=== PATIENT | male | born 1985 | race Caucasian/White ===

== ENCOUNTER 2021-09-07 10:42 | Outpatient (CLI) | payer BC, SELFPAY ==
[2021-09-07 17:42] LABS: Albumin* 4.9 g/dL (3.3-5.0)
[2021-09-07 17:45] LABS: Alkaline Phosphatase* 69 U/L (40-150); Aspartate Amino Transferase* 29 U/L (12-35); Bilirubin Direct* 0.5 mg/dL (0.0-0.5); Bilirubin Total* 1.2 mg/dL (0.1-1.5); Total Protein* 7.7 g/dL (6.0-8.3)
[2021-09-07 17:46] LABS: Alanine Aminotransferase* 35 U/L (4-50); Lipase* 78 U/L (23-300)
[2021-09-07 17:51] LABS: C Reactive Protein* < 0.5 mg/dL (0.5-1.0)
== END 2021-09-07 10:43 | disposition home or self-care (01) ==
PROVIDERS: PCP Family Medicine; Visit Provider Family Medicine
DX: R10.11 Right upper quadrant pain (principal)
CPT/HCPCS: 80076; 83690; 86140

== ENCOUNTER 2021-09-12 07:01 | Outpatient (CLI) | payer BC, SELFPAY ==
--- NOTE | 2021-09-12 07:15 | CRLHL7_ITS ---
For Patients: As a result of the Century Cures Act, medical imaging exams and procedure reports are released immediately into your electronic medical record. You may view this report before your referring provider. If you have questions, please contact your health care provider. INDICATION: Unspecified abdominal pain COMPARISON: CT 09/12/21 TECHNIQUE: Real time olvera scale imaging and color Doppler analysis was performed of the right upper quadrant. FINDINGS: The patient`s liver is enlarged and has diffusely coarsened/increased echogenicity. There is a normal appearance of the hepatic IVC and proximal abdominal aorta. There is no evidence of ascites. The gallbladder is of normal size and there is no evidence of intraluminal stones or sludge. The gallbladder wall measures 2 mm in thickness. The common bile duct is of normal size and measures 5 mm in diameter at the level of the ivy hepatis. The pancreas appears normal. There is no evidence of a stone or hydronephrosis within the right kidney. The right kidney measures 13.3 cm in length. IMPRESSION: Hepatomegaly and diffuse hepatic steatosis. Normal gallbladder. Dictated by Jamir Coronado MD @ 09/12/2021 9:23:55 AM (Electronically Signed)
== END 2021-09-12 07:02 | disposition home or self-care (01) ==
LOC: US 07:02
PROVIDERS: PCP Family Medicine; Visit Provider Family Medicine
DX: R10.9 Unspecified abdominal pain (principal); K76.0 Fatty (change of) liver, not elsewhere classified
CPT/HCPCS: 76705

== ENCOUNTER 2022-04-20 01:23 | Emergency (ER) | payer SELFPAY ==
[2022-04-20 01:31] VITALS: BP 146/88; PULSE 80; RESP 18; TEMP 36.4; O2SAT 99; BMI 40.0
--- NOTE | 2022-04-20 01:46 | ED.GENADULT ---
HPI - General Adult General Chief complaint: Unspecified Complaint, Adult Stated complaint: Shakey, vision changes Time Seen by Provider: 04/20/22 01:37 History of Present Illness HPI narrative: Pt is a 36 year old gentleman with a history of panic attacks who awoke from sleep after a particularly bad dream and felt unwell. He felt a pounding in his head. Head felt extremely anxious and felt like he was having difficulty focusing with his eyes. No focal neuroligical defects. Pt drove with his to the emergency room and although his symptoms were improved he still felt unwell. Pt describes no chest pain, shortness of breath, focal weakness, nausea or vomiting. No further pain. Pt did take a Xanax before coming in. No history of similar sleep disturbances. He has been in his usual reasonable state of health. Related Data Previous Rx's Medication Instructions Recorded escitalopram oxalate 20 mg tablet 20 mg PO QDAY #90 tabs 10/15/21 fenofibrate micronized 67 mg 67 mg PO QDAY #90 caps 10/15/21 capsule simvastatin 40 mg tablet See Rx Instructions .Route 02/07/22 .COMPLEX #90 tabs allopurinol 300 mg tablet See Rx Instructions .Route 04/18/22 .COMPLEX #90 tabs irbesartan 150 mg tablet See Rx Instructions .Route 04/18/22 .COMPLEX #90 tabs metoprolol succinate 50 mg See Rx Instructions .Route 04/18/22 tablet,extended release 24 hr .COMPLEX #90 tabs verapamil 180 mg tablet,extended See Rx Instructions .Route 04/18/22 release .COMPLEX #180 tabs Allergies Allergy/AdvReac Type Severity Reaction Status Date / Time No Known Drug Allergies Allergy Verified 09/07/21 10:16 Review of Systems Status of ROS: Reports: 10 or more systems reviewed and unremarkable except as noted in History and below [facility] Medical History Anxiety (07/13/12) Back pain Gastroesophageal reflux (12/14/12) Gout Hyperlipidemia Hypertension (07/13/12) Surgical History Status post right knee surgery Social History Smoking Status: Never smoker Exam Narrative: Exam Narrative: EXAM GENERAL: Patient appears comfortable and well. EYES: No scleral icterus. ENT: Tympanic membranes and oropharynx normal. THYROID: no thyroid nodules or thyromegaly. LYMPH: No supraclavicular or cervical lymphadenopathy. SKIN: Visible skin seen during exam normal or with benign process only. EXT: No dependent lower extremity pedal edema. HEART: Regular rate and rhythm with no murmurs, rubs, or gallops. LUNGS: Clear to auscultation bilaterally with no crackles or wheezes. ABD: Soft, non tender, non distended. PSYCH: Good eye contact, speech is not pressured. Neurologic cranial nerves 2-12 grossly intact no focal defects. Const: Vital Signs, click to edit/add: Vital Signs - 24 hr 04/20/22 01:31 Temperature 97.6 F Pulse Rate [Pulse Oximeter] 80 Respiratory Rate 18 Blood Pressure [Ri ght Upper Arm] 146/88 H Pulse Oximetry 99 Oxygen Delivery Me thod Room Air Course Course Hospital Course: Pt seen and examined. Vital Signs Vital signs: Initial Vital Signs Temperature 97.6 F 04/20/22 01:31 Temperature Source Temporal Artery Scan 04/20/22 01:31 Pulse Rate 80 04/20/22 01:31 Pulse Rhythm 04/20/22 01:31 Pulse Strength 3+ Normal 04/20/22 01:31 Respiratory Rate 18 04/20/22 01:31 Blood Pressure 146/88 H 04/20/22 01:31 Blood Pressure Mean 107 04/20/22 01:31 Blood Pressure Position Sitting 04/20/22 01:31 Pulse Oximetry 99 04/20/22 01:31 Oxygen Delivery Method 04/20/22 01:31 Vital Signs Temperature 97.6 F 04/20/22 01:31 Pulse Rate 80 04/20/22 01:31 Respiratory Rate 18 04/20/22 01:31 Blood Pressure 146/88 H 04/20/22 01:31 Pulse Oximetry 99 04/20/22 01:31 Oxygen Delivery Method 04/20/22 01:31 Temperature 97.6 F 04/20/22 01:31 Pulse Rate 80 04/20/22 01:31 Respiratory Rate 18 04/20/22 01:31 Blood Pressure 146/88 H 04/20/22 01:31 Pulse Oximetry 99 04/20/22 01:31 Oxygen Delivery Method 04/20/22 01:31 Medical Decision Making MDM Narrative Medical decision making narrative: Pt presents with symptoms consistent with a panic attack after awakening from a bad dream. Pt has no focal findings on exam and has relatively normal vital signs. Pt feeling better and would like to go home and rest. I did offer further evaluation but feel that it would be very unlikely to generate any further insight into the situation. Differential Diagnosis Differential Diagnosis: Panic Attack, CVA, TIA, Toxic ingestion, sepsis Discharge Plan Discharge Clinical Impression: Anxiety Patient Disposition: Home, Self-Care Condition: Stable Instructions: Anxiety (ED) Additional Instructions: Continue current medications Follow up with your doctor Activity Level: No Restrictions Discharge Diet: Regular Prescriptions: No Action fenofibrate micronized 67 mg capsule 67 mg PO QDAY Qty: 90 3RF Label Comments: TAKE 1 CAPSULE BY MOUTH DAILY TO LOWER TRIGLYCERIDES. TAKE WITH FOOD escitalopram oxalate 20 mg tablet 20 mg PO QDAY Qty: 90 3RF Label Comments: TAKE 1 TABLET BY MOUTH DAILY. simvastatin 40 mg tablet See Rx Instructions .ROUTE .COMPLEX Qty: 90 3RF Dose Instruction: TAKE 1 TABLET BY MOUTH EVERYDAY AT BEDTIME Rx Instructions: TAKE 1 TABLET BY MOUTH EVERYDAY AT BEDTIME verapamil 180 mg tablet extended release See Rx Instructions .ROUTE .COMPLEX Qty: 180 3RF Dose Instruction: TAKE 1 TABLET BY MOUTH TWICE A DAY Rx Instructions: TAKE 1 TABLET BY MOUTH TWICE A DAY allopurinol 300 mg tablet See Rx Instructions .ROUTE .COMPLEX Qty: 90 3RF Dose Instruction: TAKE 1 TABLET BY MOUTH EVERY DAY Rx Instructions: TAKE 1 TABLET BY MOUTH EVERY DAY irbesartan 150 mg tablet See Rx Instructions .ROUTE .COMPLEX Qty: 90 3RF Dose Instruction: TAKE 1 TABLET BY MOUTH EVERY DAY Rx Instructions: TAKE 1 TABLET BY MOUTH EVERY DAY metoprolol succinate 50 mg tablet extended release 24 hr See Rx Instructions .ROUTE .COMPLEX Qty: 90 3RF Dose Instruction: TAKE 1 TABLET BY MOUTH DAILY. Rx Instructions: TAKE 1 TABLET BY MOUTH DAILY. Follow Up/Referrals: Paxton Issa MD [Primary Care Provider] - Stand Alone Forms: [facility] Info Instructions
[2022-04-20 02:10] VITALS: BP 145/95; PULSE 71; RESP 16; O2SAT 98
== END 2022-04-20 02:14 | disposition home or self-care (01) ==
PROVIDERS: Emergency Provider Internal Medicine; PCP Family Medicine
DX: F41.9 Anxiety disorder, unspecified (principal)
CPT/HCPCS: 99283

== ENCOUNTER 2022-04-23 13:38 | Outpatient (CLI) | payer SELFPAY ==
[2022-04-23 17:26] LABS: Cholesterol* 176 mg/dL (90-199); HDL Cholesterol* 39 mg/dL (>=40); LDL Cholesterol Calculated 75 mg/dL (<100); Triglycerides* 311 mg/dL (40-149)
== END 2022-04-23 13:39 | disposition home or self-care (01) ==
LOC: LONREF 13:39
PROVIDERS: PCP Family Medicine; Visit Provider Family Medicine
DX: E78.5 Hyperlipidemia, unspecified (principal)
CPT/HCPCS: 80061

== ENCOUNTER 2023-01-08 19:18 | Outpatient (CLI) | payer BC, SELFPAY ==
--- NOTE | 2023-01-21 10:05 | W.PM.SLEEP ---
Sleep Study Details Details Interpreting Provider: Michelle Date of Sleep Study: 01/08/23 Sleep Study Details: STUDY TYPE:? Home unattended ? BMI:? 41 ORDERING PROVIDER:? Michelle INDICATION:? Concerns about sleep apnea ? SLEEP SUMMARY:? 451 minutes monitored RESPIRATORY SUMMARY:? AHI 53.4, supine 47.8, prone 62.6, left lateral 62.3 Low oxygen 70 5.2% of study oxygen less than 90% Snoring 17.9% PERIODIC LIMB MOVEMENTS OF SLEEP:? Not recorded during home study CARDIAC:? Range 57-106, mean 74.1 beats per minute IMPRESSION:? Severe obstructive sleep apnea RECOMMENDATION: Treatment options include in-lab titration, AutoSet CPAP pressure 4-18. Weight loss is also recommended.
== END 2023-01-08 19:19 | disposition home or self-care (01) ==
LOC: SLEEP 19:19
PROVIDERS: PCP Family Medicine; Visit Provider Otolaryngology
DX: G47.33 Obstructive sleep apnea (adult) (pediatric) (principal)
CPT/HCPCS: 95806

== ENCOUNTER 2023-01-28 15:35 | Outpatient (CLI) | payer BC, SELFPAY | END 2023-01-28 15:36 | disposition home or self-care (01) | PROVIDERS: PCP Family Medicine; Visit Provider Nurse Practitioner Family | DX: R10.11 Right upper quadrant pain (principal) | CPT/HCPCS: 80053; 82150; 83690 ==

== ENCOUNTER 2023-01-30 15:21 | Outpatient (CLI) | payer BC, SELFPAY ==
--- NOTE | 2023-01-30 16:00 | CRLHL7_ITS ---
For Patients: As a result of the Century Cures Act, medical imaging exams and procedure reports are released immediately into your electronic medical record. You may view this report before your referring provider. If you have questions, please contact your health care provider. INDICATION: Abdominal pain COMPARISON: none TECHNIQUE: Real time olvera scale imaging and color Doppler analysis was performed of the right upper quadrant. FINDINGS: The liver is enlarged measuring 20.1 cm. The liver echotexture is diffusely coarsened and hyperechoic. No intrahepatic mass. Focal fatty sparing is present adjacent to the gallbladder fossa. There is a normal appearance of the hepatic IVC and proximal abdominal aorta. There is no evidence of ascites. The gallbladder is of normal size and there is no evidence of intraluminal stones or sludge. The gallbladder wall measures 2 mm in thickness. The common bile duct is of normal size and measures 5 mm in diameter at the level of the ivy hepatis. The pancreas appears normal. There is no evidence of a stone or hydronephrosis within the right kidney. The right kidney measures 12.8 cm in length. IMPRESSION: Hepatomegaly with severe hepatic steatosis. No ascites. Normal gallbladder. Dictated by Jamir Coronado MD @ 01/31/2023 11:52:08 AM (Electronically Signed)
== END 2023-01-30 15:22 | disposition home or self-care (01) ==
LOC: US 15:21
PROVIDERS: PCP Family Medicine; Visit Provider Nurse Practitioner Family
DX: R10.9 Unspecified abdominal pain (principal); K76.0 Fatty (change of) liver, not elsewhere classified; R16.0 Hepatomegaly, not elsewhere classified
CPT/HCPCS: 76705

== ENCOUNTER 2023-09-17 09:27 | Outpatient (CLI) | payer BC, SELFPAY ==
--- OUTSIDE RECORDS SUMMARY | 2023-09-17 09:37 | XMS_ITS | Clinical Summary ---
Author Organization [facility] Address [place], [place] [address] Care Team Providers Care Media Liaison Officer Name Role Phone Paxton Issa MD Primary Care Provider [phone] Allergies No known active allergies Medications Medication Sig Dispensed Refills Start Date End Date Status verapamil (VERELAN) 180 mg Controlled-Release capsule Take 180 mg by mouth 2 times daily. Active allopurinol (ZYLOPRIM) 300 mg tablet Take 300 mg by mouth once daily. Active ALPRAZOLAM ORAL Take 1 Tab by mouth. Active Yvgvm-[id number]-EPA-Fish Oil (FISH OIL) 1,000 mg (120 mg-180 mg) cap Take by mouth. 0 11/20/2016 A ctive spironolactone (ALDACTONE) 25 mg tabletIndications:After care following surgery of the musculoskeletal system Take 1 tablet by mouth once daily. 0 01/08/2017 Active simvastatin (ZOCOR) 20 mg tabletIndications:After care following surgery of the musculoskeletal system Take 1 tablet by mouth at bedtime. 0 01/08/2017 Active escitalopram oxalate (LEXAPRO) 10 mg tablet Take 10 mg by mouth once daily. Active benzonatate (TESSALON) 200 mg capsuleIndications:Bryanna l URI with cough Take 1 capsule by mouth 3 times daily if needed for Cough. 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 DOS: 02/08/2016 Dr Rebecca Boyd 02/21/2016 Right knee posterior cruciate ligament tear 11/25 Right knee grade II MCL tear 12/20/2015 Family History Medical History Relation Name Comments Heart attack Father Hypertension Father Graves' disease Sister Relation Name Status Comments Father Sister Social History Tobacco Use Types Packs/Day Years Used Date Smoking Tobacco: Never Smokeless Tobacco: Never Tobacco Cessation:Counseling Given: Yes Alcohol Use Standard Drinks/Week Comments Yes 0 (1 standard drink = 0.6 oz pur e alcohol) Not often Sex and Gender Information Value Date Recorded Sex Assigned at Not on file Gender Identity Not on file Sexual Orientation Not on file Obstetrics History Last Filed Vital Signs Vital Sign Reading Time Taken Comments Blood Pressure 128/74 08/23/2017 2:09 PM CDT Pulse 73 08/23/2017 2:09 PM CDT Temperature 37 ??C (98.6 ??F) 08/23/2017 2:09 PM CDT Respiratory Rate 18 08/23/2017 2:09 PM CDT Oxygen Saturation 97% 08/23/2017 2:09 PM CDT Inhaled Oxygen Concentration - - Weight 122.9 kg (271 lb) 08/23/2017 2:09 PM CDT Height 180.3 cm (5' 11) 11/08/2016 10:42 PM CDT Body Mass Index 37.8 11/08/2016 10:42 PM CDT Plan of Treatment Health Maintenance Due Date Last Done Comments Tdap 1996 Depression screening for age 12+ 1997 HIV for age 15-65 2000 Hepatitis C screening for ag e 18-79 04/25/2003 Tetanus booster 2005 BMI (ht and wt on same day) for age 18+ 11/08/2017 11/08/2016 Lipids for age 35-44 2020 COVID-19 vaccine series (2022-24 season) 2022 Influenza for age 9-49 10/26/2023 Pneumococcal series for age 6-64 Aged Out No longer eligible based on patient's age to complete this topic Medical Devices Implanted Type Area Consolidation Accountant Device Identifier Shelf Expiration Date Model / Serial / Lot [id number] on 10mm Biocleanse Achilles Preshaped [[id number]] Implanted:Qty: 1 on 02/08/2016 by Rebecca Boyd MD at [facility] Explanted:at [facility] (Quantity not on file) Right: Knee [employer] 06/12/2019 [id number] / [id number] / Screw Soft Tissue 8x23mm Biosteon Interference - [id number] Implanted:Qty: 1 on 02/08/2016 by Rebecca Boyd MD at [facility] Right: Knee [employer] 07/24/2018 [id number]# / / [id number] Screw Soft Tissue [id number] Biosteon Interference - [id number] Implanted:Qty: 1 on 02/08/2016 by Rebecca Boyd MD at [facility] Right: Knee [employer] 05/24/2018 [id number]# / / [id number] Advance Directives * Full Code (Latest Code Status on File) Date Activated Date Inactivated Comments 02/08/2016 12:52 PM 02/08/2016 5:47 PM * Full Code Date Activated Date Inactivated Comments 02/08/2016 6:15 AM 02/08/2016 12:52 PM Care Teams Media Liaison Officer Relationship Specialty Start Date End Date Paxton Issa MD PCP - General Family Practice 12/15/15
== END 2023-09-17 09:28 | disposition home or self-care (01) ==
PROVIDERS: PCP Family Medicine; Visit Provider Family Medicine
DX: I10 Essential (primary) hypertension (principal); E78.5 Hyperlipidemia, unspecified; M10.9 Gout, unspecified; M79.10 Myalgia, unspecified site
CPT/HCPCS: 80048; 80061; 82550